=== PATIENT | male | born 1990 | race Two or more races ===

== ENCOUNTER 2022-08-04 16:25 | Inpatient (IN) | payer OTHER ==
[2022-08-04 16:55] VITALS: TEMP 98.6; BMI 27.7
[2022-08-04] MEDS ORDERED: IBUPROFEN 600 MG TABLET (FP) PO PRN (18:10)
[2022-08-04] MEDS ORDERED: NICOTINE 10 MG CARTRIDGE (INHALER) IH PRN (18:10)
[2022-08-04] MEDS ORDERED: BENZONATATE 200 MG CAPSULE PO PRN (18:10)
[2022-08-04] MEDS ORDERED: ONDANSETRON *ODT* 4 MG TABLET SL PRN (18:10)
[2022-08-04] MEDS ORDERED: NALOXONE HCL (KLOXXADO) 8 MG SPRAY NS PRN (18:10)
[2022-08-04] MEDS ORDERED: hydrOXYzine PAMOATE 25 MG CAPSULE (FP) PO PRN (18:10)
[2022-08-04] MEDS ORDERED: BENZOCAINE/MENTHOL (CHLORASEPTIC ) LOZENGE MM PRN (18:10)
[2022-08-04] MEDS ORDERED: DICYCLOMINE HCL 10 MG CAPSULE PO PRN (18:10)
[2022-08-04] MEDS ORDERED: guaiFENesin 600 MG TABLET.ER (FP) PO PRN (18:10)
[2022-08-04] MEDS ORDERED: chlordiazePOXIDE HCL 25 MG CAPSULE PO PRN (18:10)
[2022-08-04] MEDS ORDERED: MAG HYDROX/AL HYDROX/SIMETH 30 ML UNIT-DOSE CUP PO PRN (18:10)
[2022-08-04] MEDS ORDERED: MAGNESIUM HYDROX 2400MG/30ML ORAL SUSPENSION 30 ML CUP PO PRN (18:10)
[2022-08-04] MEDS ORDERED: BISMUTH SUBSALICYLATE 524 MG/30 ML PO PRN (18:10)
[2022-08-04] MEDS ORDERED: IBUPROFEN 400 MG TABLET (FP) PO PRN (18:10)
[2022-08-04] MEDS ORDERED: NALOXONE HCL 0.4 MG/ML VIAL IM PRN (18:10)
[2022-08-04] MEDS ORDERED: METHOCARBAMOL 500 MG TABLET PO PRN (18:10)
[2022-08-04] MEDS ORDERED: POLYETHYLENE GLYCOL (HEALTHYLAX) 3350 17 GM PACKET PO PRN (18:10)
[2022-08-04] MEDS ORDERED: ACETAMINOPHEN 325 MG TABLET (FP) PO PRN (18:10)
[2022-08-04] MEDS ORDERED: LOPERAMIDE HCL 2 MG CAPSULE PO PRN (18:10)
[2022-08-04] MEDS ORDERED: chlordiazePOXIDE HCL 25 MG CAPSULE ONE (18:55)
[2022-08-04] MEDS ORDERED: cloNIDine HCL 0.1 MG TABLET PO PRN (20:21)
[2022-08-04 20:59] VITALS: RESP 16
[2022-08-04] MEDS ORDERED: THIAMINE HCL 100 MG TABLET (FP) PO SCH (22:00)
[2022-08-04] MEDS ORDERED: MELATONIN 5 MG TABLETS PO SCH (22:00)
[2022-08-04 22:42] VITALS: BP 150/93; PULSE 95
[2022-08-04] MEDS ORDERED: chlordiazePOXIDE HCL 25 MG CAPSULE PO SCH (23:00)
[2022-08-05] MEDS ORDERED: amLODIPine BESYLATE 10 MG TABLET (FP) PO SCH (10:00)
[2022-08-05] MEDS ORDERED: PRENATAL VITAMINS W/ FOLIC ACID TABLET (FP) PO SCH (10:00)
[2022-08-06] MEDS ORDERED: chlordiazePOXIDE HCL 25 MG CAPSULE PO SCH (05:00)
[2022-08-07] MEDS ORDERED: chlordiazePOXIDE HCL 10 MG CAPSULE PO PRN
[2022-08-07] MEDS ORDERED: chlordiazePOXIDE HCL 10 MG CAPSULE PO SCH (05:00)
[2022-08-08] MEDS ORDERED: chlordiazePOXIDE HCL 10 MG CAPSULE PO SCH (05:00)
[2022-08-09] MEDS ORDERED: chlordiazePOXIDE HCL 10 MG CAPSULE PO ONE (05:00)
== END 2022-08-04 21:51 | disposition left against medical advice (07) | DRG 770 ==
LOC: YASAS 16:25 → Y6N 18:31
PROVIDERS: ADMIT Allergy & Immunology; ATTEND Surgery
PROC: HZ2ZZZZ Detoxification Services for Substance Abuse Treatment (ICD-10-PCS; principal; 2022-08-04)
DX: F10.230 Alcohol dependence with withdrawal, uncomplicated (principal); I10 Essential (primary) hypertension
CPT/HCPCS: 87811; C9803-CS; U0003; U0005